=== PATIENT | male | born 1980 | race Caucasian/White ===

== ENCOUNTER 2016-09-20 15:54 | Emergency (ER) | payer OTHER, BC ==
[~2016-09-20] VITALS: Ht 185.4 cm; Wt 100.9 kg
[~2016-09-20 15:54] MED LIST: AMOXICILLIN500 MG PO; AUGMENTIN875 MG PO; ENDOCET 10-3251 EACH PO; MOTRIN600 MG PO; NAPROSYN500 MG PO; NAPROXEN500 MG PO; NORCO 5/3251 TABLET PO; ULTRAM50 MG PO
[2016-09-20] MEDS ORDERED: MOTRIN800 MG PO (18:04)
[2016-09-20 19:17] VITALS: BP 116/77
== END 2016-09-20 19:19 | disposition home or self-care (01) ==
LOC: EME 15:54
DX: S09.90XA Unspecified injury of head, initial encounter (principal); W01.198A Fall on same level from slipping, tripping and stumbling with subsequent striking against other object, initial encounter; Z72.0 Tobacco use
CPT/HCPCS: 70450; 99281; 99282

== ENCOUNTER 2016-10-28 08:19 | Emergency (ER) | payer BC, OTHER ==
[~2016-10-28] VITALS: Ht 185.4 cm; Wt 102.1 kg
[~2016-10-28 08:19] MED LIST changes: +MOTRIN800 MG PO
[2016-10-28] MEDS ORDERED: LORTAB 5-325 M1 EACH PO (11:32)
[2016-10-28 11:53] VITALS: BP 149/91
== END 2016-10-28 11:54 | disposition home or self-care (01) ==
LOC: EME 08:19
PROC: 0JQK3ZZ Repair Left Hand Subcutaneous Tissue and Fascia, Percutaneous Approach (ICD-10-PCS; principal; 2016-10-28)
DX: S61.412A Laceration without foreign body of left hand, initial encounter (principal); S66.922A Laceration of unspecified muscle, fascia and tendon at wrist and hand level, left hand, initial encounter; W31.2XXA Contact with powered woodworking and forming machines, initial encounter; F17.200 Nicotine dependence, unspecified, uncomplicated
CPT/HCPCS: 73130; 99281; 99283